=== PATIENT | female | born 1955 | race Caucasian/White ===

== ENCOUNTER 2016-08-03 08:27 | Emergency (ER) | payer OTHER ==
[~2016-08-03] VITALS: Ht 165.1 cm; Wt 70.0 kg
[~2016-08-03 08:27] MED LIST: ADDERALL10 MG PO; FLEXERIL PO; MEDDOSEPAK PO; OXYBUTYNIN5 MG PO; TIZANIDINE HCL2 MG PO; TRAMADOL HCL50 MG PO; ULTRAM50 M1 PO; ZANAFLEX2 MG PO
[2016-08-03] MEDS ORDERED: TYLENOL # 31 TA1 PO (08:50)
[2016-08-03] MEDS ORDERED: FLEXERIL PO (08:50)
[2016-08-03 08:58] VITALS: BP 137/88
== END 2016-08-03 09:05 | disposition home or self-care (01) | DRG 563 ==
LOC: ED 08:27
DX: S39.012A Strain of muscle, fascia and tendon of lower back, initial encounter (principal); I10 Essential (primary) hypertension; W19.XXXA Unspecified fall, initial encounter

== ENCOUNTER 2016-09-21 09:58 | Emergency (ER) | payer OTHER ==
[~2016-09-21] VITALS: Ht 165.1 cm; Wt 61.4 kg
[~2016-09-21 09:58] MED LIST changes: +TYLENOL # 31 TA1 PO
[2016-09-21] MEDS ORDERED: ADDERALL10 MG PO (11:14)
[2016-09-21 12:25] VITALS: BP 133/78
== END 2016-09-21 12:25 | disposition home or self-care (01) | DRG 552 ==
LOC: ED 09:58
DX: M54.5 Low back pain (principal); W18.39XA Other fall on same level, initial encounter; Y93.F2 Activity, caregiving, lifting; Y92.003 Bedroom of unspecified non-institutional (private) residence as the place of occurrence of the external cause